=== PATIENT | female | born 1965 | race Caucasian/White ===

== ENCOUNTER 2021-10-08 11:47 | Emergency (ER) | payer OTHER ==
[2021-10-08 12:12] VITALS: BMI 36.0
[2021-10-08] MEDS ORDERED: CASIRIVIMAB/IMDEVIMAB 10 ML in SODIUM CHLORIDE 100 ML IVPB ONE (12:27)
[2021-10-08] MEDS ORDERED: hydrOXYzine HCL 10 MG/5 ML LIQUID BULK BOTTLE PO ONE (12:27)
[2021-10-08] MEDS ORDERED: hydrOXYzine PAMOATE 25 MG CAPSULE (FP) PO ONE ×2 (12:55)
[2021-10-08 14:43] VITALS: BP 152/84; PULSE 63; TEMP 98.8
== END 2021-10-08 15:20 | disposition home or self-care (01) ==
LOC: JCOVINFU 11:47 → JER 11:47 → JCOVINFU 15:20
DX: U07.1 COVID-19 (principal)
CPT/HCPCS: 96365; 99284-25; Q0240